=== PATIENT | female | born 1975 | race Caucasian/White ===

== ENCOUNTER 2019-07-12 15:20 | Inpatient (IN) | payer OTHER ==
[~2019-07-12] VITALS: Ht 159 cm; Wt 64.0 kg
[2019-07-12 17:01] VITALS: BP 102/70
[2019-07-12] MEDS ORDERED: RINGERS SOLUTION,LACTATED 1,000 ML IV PRN (17:06)
[2019-07-12] MEDS ORDERED: OXYTOCIN 30 UNITS/LACT RINGERS 500 ML IV ONE (17:06)
[2019-07-12] MEDS ORDERED: PREN-217 PO (17:06)
[2019-07-12] MEDS ORDERED: METOCLOPRAMIDE HCL 5 MG/ML 2 ML VIAL IVP PRN (17:15)
[2019-07-12] MEDS ORDERED: FentaNYL CITRATE-PF 100 MCG/2 ML VIAL IVP PRN (17:15)
[2019-07-12] MEDS ORDERED: CITRIC ACID/SODIUM CITRATE 30 ML SOLUTION UDCUP PO PRN (17:15)
[2019-07-12] MEDS ORDERED: TERBUTALINE SULFATE 1 MG/ML VIAL SQ PRN (17:15)
[2019-07-12] MEDS ORDERED: METHYLERGONOVINE MALEATE 0.2 MG/ML VIAL IM PRN (17:15)
[2019-07-12] MEDS: RINGERS SOLUTION,LACTATED 1,000 ML IV SCH ×2 (17:35→23:11)
[2019-07-12 18:06] LABS: GLUCOMETER DEV NAME(LOC) 4S.; GLUCOSE,POINT OF CARE 53 MG/DL (70-110)
[2019-07-12 18:08] LABS: BASOPHILS % (AUTO) 0.4 % (0.0-2.0); EOSINOPHILS % (AUTO) 2.8 % (1.0-6.0); HEMATOCRIT 35.7 % (36-46); HEMOGLOBIN 12.1 g/dL (12.0-16.0); LYMPHOCYTES # (AUTO) 1.8 K/uL (1.0-4.8); LYMPHOCYTES % (AUTO) 23.2 % (22.0-44.0); MEAN CORPUSCULAR HEMOGLOBIN 31.5 pg (26.0-34.0); MEAN CORPUSCULAR HGB CONC 33.9 G/dL (31.0-37.0); MEAN CORPUSCULAR VOLUME 93 fL (80-100); MONOCYTES # (AUTO) 0.7 K/uL (0.1-1.0); MONOCYTES % (AUTO) 8.6 % (2.0-9.0); PLATELET COUNT (AUTO)-OB 269 K/uL (150-450); RED BLOOD CELL COUNT(AUTO) 3.84 MIL/uL (4.00-5.20); RED CELL DISTRIBUTION WIDTH 13.3 % (11.5-14.5)
[2019-07-12] MEDS: MISOPROSTOL 25 MCG TABLET VG SCH ×2 (19:14→23:10)
[2019-07-12] MEDS ORDERED: AMPICILLIN SODIUM 2 GM/NS 100 ML IV ONE (19:30)
[2019-07-12] MEDS ORDERED: OXYGEN THERAPY IH SCH (20:00)
[2019-07-12 20:11] LABS: GLUCOMETER DEV NAME(LOC) 4S.; GLUCOSE,POINT OF CARE 106 MG/DL (70-110)
[2019-07-12] MEDS ORDERED: INFLUENZA VIRUS VACCINE QVS 2019-20 (3YR+)/PF 60 MCG/0.5 ML SYRINGE IM ONE (22:45)
[2019-07-13] MEDS ORDERED: AMPICILLIN SODIUM 1 GM/NS 50 ML IV SCH
[2019-07-13] MEDS ORDERED: ROPIVACAINE HCL/PF 0.2% 100 ML ED ONE (01:54)
[2019-07-13] MEDS ORDERED: BUPIVACAINE HCL/PF 0.25% 10 ML VIAL ONE (01:54)
[2019-07-13] MEDS ORDERED: LIDOCAINE/PF 1% 30 ML VIAL ONE (02:13)
[2019-07-13] MEDS ORDERED: RINGERS SOLUTION,LACTATED 1,000 ML IV ONE (02:43)
[2019-07-13] MEDS ORDERED: OxyCODONE HCL/ACETAMINOPHEN 5-325 MG TABLET PO PRN ×2 (02:45)
[2019-07-13] MEDS ORDERED: BENZOCAINE 20%/MENTHOL 56 GM SPRAY CANISTER TP PRN (02:45)
[2019-07-13] MEDS ORDERED: GLYCERIN/WITCH HAZEL LEAF 40 PADS JAR TP PRN (02:45)
[2019-07-13] MEDS ORDERED: LANOLIN 7 GM OINTMENT TP PRN (02:45)
[2019-07-13] MEDS ORDERED: MEASLES/MUMPS/RUBELLA VACCINE, LIVE 0.5 ML/VIAL SQ ONE (02:45)
[2019-07-13] MEDS: IBUPROFEN 600 MG TABLET PO PRN ×2 (04:02→11:02)
[2019-07-13] MEDS: MAGNESIUM HYDROXIDE SUSPENSION 30 ML UDCUP PO SCH ×2 (10:00→21:07)
[2019-07-14] MEDS: IBUPROFEN 600 MG TABLET PO PRN ×2 (00:21→08:30)
[2019-07-14] MEDS: MAGNESIUM HYDROXIDE SUSPENSION 30 ML UDCUP PO SCH (09:13)
[2019-07-14] MEDS ORDERED: IBUP-2071 PO (09:19)
[2019-07-14] MEDS ORDERED: DOCU-275 PO (09:20)
== END 2019-07-14 10:30 | disposition home or self-care (01) | DRG 807 ==
LOC: OBSVTOIN 15:20 → 4S 15:20
PROVIDERS: ADMIT Obstetrics & Gynecology; ATTEND Obstetrics & Gynecology
PROC: 0HQ9XZZ Repair Perineum Skin, External Approach (ICD-10-PCS; principal; 2019-07-13)
PROC: 10E0XZZ Delivery of Products of Conception, External Approach (ICD-10-PCS; 2019-07-13)
DX: O99.824 Streptococcus B carrier state complicating childbirth (principal); Z37.0 Single live birth; O69.81X0 Labor and delivery complicated by cord around neck, without compression, not applicable or unspecified; O24.429 Gestational diabetes mellitus in childbirth, unspecified control; Z3A.39 39 weeks gestation of pregnancy; O70.0 First degree perineal laceration during delivery
CPT/HCPCS: 86850; 86900; 86901; J0290; J2590; J2795; J3490; J7120